=== PATIENT | female | born 1930 | race Caucasian/White ===

== ENCOUNTER 2017-04-24 11:04 | Observation (INO) | payer MEDICARE, BC ==
[2017-04-24] MEDS ORDERED: Acetaminophen 325 MG Tab PO PRN (12:25)
[2017-04-24] MEDS ORDERED: Ondansetron 4 MG Tab.DIS PO PRN (12:25)
[2017-04-24] MEDS ORDERED: Temazepam 15 MG Cap PO PRN (12:25)
[2017-04-24] MEDS ORDERED: Sodium Chloride 0.9% 10 ML Syringe FLUSH PRN (12:25)
[2017-04-24] MEDS ORDERED: Aspirin 81 MG Tab.EC PO SCH (12:30)
[2017-04-24 12:59] LABS: CHLORIDE,CL 103 mEq/L (98-106); SODIUM,NA 140 mEq/L (136-145)
[2017-04-24] MEDS: GLIPIZIDE 5 MG PO SCH (13:38)
[2017-04-24] MEDS: LISINOPRIL HCTZ PO SCH (13:38)
[2017-04-24] MEDS: AMLODIPINE 5 MG PO SCH (19:56)
[2017-04-24] MEDS: EYE OP SCH (19:57)
[2017-04-24] MEDS: COMBIGAN OP SCH (19:57)
[2017-04-24] MEDS: BRINZOLAMIDE OP SCH (19:57)
[2017-04-24] MEDS: LATANOPROST 0.005% EYEBOTH SCH (19:58)
[2017-04-24] MEDS: SIMVASTATIN 20 MG PO SCH (19:59)
[2017-04-25] MEDS: LISINOPRIL HCTZ PO SCH (08:10)
[2017-04-25] MEDS: EYE OP SCH ×2 (08:11→20:16)
[2017-04-25] MEDS: COMBIGAN OP SCH ×2 (08:11→20:16)
[2017-04-25] MEDS: BRINZOLAMIDE OP SCH ×2 (08:11→20:16)
[2017-04-25] MEDS: PTOM-Potassium Chloride 10 MEQ Tab.ER PO SCH (08:11)
[2017-04-25] MEDS: GLIPIZIDE 5 MG PO SCH (08:11)
[2017-04-25] MEDS: Aspirin 81 MG Tab.EC PO SCH (08:12)
--- NOTE | 2017-04-25 10:52 | PN ---
DATE: 04/25/2017 S: Rena was admitted for lightheadedness and dizziness. It sounds like she had one more episode while she was here, that looks like it was related to maybe a sugar down around the 70 area. We did initiate her on Glucotrol because her A1c was up to 8.5. We cut that dose down from 5 to 2.5. For the most part, she has otherwise been stable. She has had no blood pressure irregularities. Her pulse has been anywhere from 63 to 90 and sinus. O: GENERAL: She is pleasant and cooperative. HEENT: Grossly benign. NECK: Veins are flat. LUNGS: Appear clear. CARDIAC: Tones are regular. ABDOMEN: Appears nontender. EXTREMITIES: She has no peripheral edema. ASSESSMENT: 1. LIGHTHEADEDNESS. 2. HYPERTENSION, CONTROLLED. 3. TYPE 2 DIABETES. P: We have dietitian seeing her later today. We are also going to get her an echo today. Thus far, her CT head and carotid are apparently without any acute changes. Plan on sending her home tomorrow morning. MARYLIN/CHAITANYA /[id number]
[2017-04-25] MEDS: Enoxaparin 30 MG/0.3 ML Syringe SUBCUT SCH (11:29)
[2017-04-25] MEDS: SIMVASTATIN 20 MG PO SCH (20:08)
[2017-04-25] MEDS: LATANOPROST 0.005% EYEBOTH SCH (20:09)
[2017-04-25] MEDS: AMLODIPINE 5 MG PO SCH (20:12)
[2017-04-26 07:16] VITALS: BP 145/79
[2017-04-26] MEDS ORDERED: glipiZIDE 2.5 MG Tab.ER PO SCH (08:00)
[2017-04-26] MEDS: BRINZOLAMIDE OP SCH (08:04)
[2017-04-26] MEDS: COMBIGAN OP SCH (08:05)
[2017-04-26] MEDS: PTOM-Potassium Chloride 10 MEQ Tab.ER PO SCH (08:05)
[2017-04-26] MEDS: EYE OP SCH (08:05)
[2017-04-26] MEDS: Aspirin 81 MG Tab.EC PO SCH (08:07)
[2017-04-26] MEDS: LISINOPRIL HCTZ PO SCH (08:07)
[2017-04-26] MEDS: Enoxaparin 30 MG/0.3 ML Syringe SUBCUT SCH (08:07)
--- NOTE | 2017-04-27 07:55 | DISCH ---
ADMISSION DIAGNOSES: Lightheadedness and dizziness. DISCHARGE DIAGNOSIS: 1. LIGHTHEADEDNESS, RESOLVED. 2. TYPE 2 DIABETES. 3. HYPERTENSION. HISTORY: The patient is an 86-year-old female, well known to me, has been treated for longstanding hypertension. She has had diet-controlled diabetes for few years. Her A1c recently went up to over 8.5. She was started on very low- dose sulfonylurea and was doing well. On the day prior to admission, she has had what sounds like intestinal virus with some vomiting and diarrhea. The next day she was lightheaded and dizzy especially with position changes and we elected to admit her for observation to rule out something more ominous. HOSPITAL COURSE: The patient was admitted, CT of the head was fine. Her carotids looked well. We did do an echo and we had to see a report, but she has had normal telemetry since being here. She has had no significant hypotension since admission and she has not had any significant hypoglycemia. I did decrease her Glucotrol XL dose from 5 to 2.5, and I think she will do well on that dose. We did have dietitian sit down with her and go over a diabetic diet and have diabetes education. Family has been present throughout her stay and they are well aware as is the patient and the need for monitoring with glucometer as needed and the signs and symptoms of hypoglycemia. I suspect that her lightheadedness and dizziness was related to her antihypertensives with some mild dehydration related to her flu. The patient will not have any medication changes other than cutting her Glucotrol dose down slightly and if she continues to have any consistent blood sugars below 80, we will switch agents. I will see her back in clinic in 2 weeks for followup on her glucometer readings. COMPLICATIONS: During her stay were none. CONSULTATIONS: [facility] [facility]. PROCEDURES: CT head, carotid ultrasound, echocardiogram. DISPOSITION: Discharged home. MARYLIN/CHAITANYA /[id number]
== END 2017-04-26 10:35 | disposition home or self-care (01) ==
LOC: CC.MS 11:04 → UNDOADMOB 11:04 → CC.MS 12:26
PROVIDERS: ADMIT Family Medicine; ATTEND Family Medicine
DX: R42 Dizziness and giddiness (principal); I10 Essential (primary) hypertension; E11.9 Type 2 diabetes mellitus without complications; E78.5 Hyperlipidemia, unspecified; E87.6 Hypokalemia; Z79.82 Long term (current) use of aspirin; Z79.899 Other long term (current) drug therapy
CPT/HCPCS: 36415; 70450; 71020; 80053; 81001; 82962; 83735; 84484; 85025; 86140; 93005; 93306; 93880; 96372; 97161; A9270; G0378; J1650; 93010; 99217; 99220; 99226